=== PATIENT | male | born 2000 | race Hispanic/Latino ===

== ENCOUNTER 2024-12-29 20:52 | Emergency (ER) | payer BC ==
[2024-12-29] MEDS: Ketorolac 60 MG/2 ML SDV IM ONE (22:12)
[2024-12-29] MEDS: Amoxicillin/Clavulanate K 875-125 MG Tab PO ONE (22:13)
== END 2024-12-29 22:10 | disposition home or self-care (01) ==
LOC: JD.ED 20:52
DX: J03.90 Acute tonsillitis, unspecified (principal); Z79.899 Other long term (current) drug therapy
CPT/HCPCS: 96372; 99283; A9270; J1885